=== PATIENT | female | born 1975 | race Caucasian/White ===

== ENCOUNTER 2018-01-25 12:12 | Emergency (ER) | payer OTHER ==
[~2018-01-25] VITALS: Ht 177.8 cm; Wt 86.2 kg
[~2018-01-25 12:12] MED LIST: ALLEGRA60 MG PO; CYCLOBENZAPRINE10 MG PO; IBUPROFEN400 MG PO; MOUTH SORE15 ML MM; NORCO 5-325 TA1 EACH PO; OXYCODONE HCL5 MG PO; PERCOCET 5-3251 EACH PO
[2018-01-25] MEDS ORDERED: IBUPROFEN600 MG PO (14:21)
[2018-01-25] MEDS ORDERED: NORCO 5-325 TA1 EACH PO (14:21)
[2018-01-25] MEDS ORDERED: CYCLOBENZAPRINE5 MG PO (14:21)
== END 2018-01-25 15:05 | disposition home or self-care (01) ==
LOC: ED 12:12
DX: S06.0X9A Concussion with loss of consciousness of unspecified duration, initial encounter (principal); S46.912A Strain of unspecified muscle, fascia and tendon at shoulder and upper arm level, left arm, initial encounter; S16.1XXA Strain of muscle, fascia and tendon at neck level, initial encounter; S70.02XA Contusion of left hip, initial encounter; W55.12XA Struck by horse, initial encounter; F17.200 Nicotine dependence, unspecified, uncomplicated; Z91.030 Bee allergy status; Z88.8 Allergy status to other drugs, medicaments and biological substances
CPT/HCPCS: 36415; 70450; 71045; 72125; 73030; 73502; 80053; 82150; 82550; 83690; 84703; 85025; 86850; 86900; 86901; 96374; 96375; 99284; G0480; J1100; J1170; J1885

== ENCOUNTER 2018-08-23 22:14 | Emergency (ER) | payer OTHER ==
[~2018-08-23] VITALS: Ht 177.8 cm; Wt 86.2 kg
[~2018-08-23 22:14] MED LIST changes: +CYCLOBENZAPRINE5 MG PO; +IBUPROFEN600 MG PO
[2018-08-23] MEDS ORDERED: NORCO 5-325 TA1 EACH PO (23:22)
== END 2018-08-23 23:32 | disposition home or self-care (01) ==
LOC: ED 22:14
PROC: 2W3CX1Z Immobilization of Right Lower Arm using Splint (ICD-10-PCS; principal; 2018-08-23)
DX: S63.501A Unspecified sprain of right wrist, initial encounter (principal); S63.91XA Sprain of unspecified part of right wrist and hand, initial encounter; S43.401A Unspecified sprain of right shoulder joint, initial encounter; F17.200 Nicotine dependence, unspecified, uncomplicated; Z90.49 Acquired absence of other specified parts of digestive tract; Z91.038 Other insect allergy status; Z88.5 Allergy status to narcotic agent; Z88.8 Allergy status to other drugs, medicaments and biological substances; Z91.09 Other allergy status, other than to drugs and biological substances; W10.9XXA Fall (on) (from) unspecified stairs and steps, initial encounter
CPT/HCPCS: 29125; 73030; 73110; 73130; 99283-25

== ENCOUNTER 2020-10-07 11:52 | Emergency (ER) | payer SELFPAY ==
[~2020-10-07] VITALS: Ht 177.8 cm; Wt 68.0 kg
[2020-10-07] MEDS ORDERED: ERYTHROMYCIN1 GM OP (15:02)
== END 2020-10-07 15:26 | disposition home or self-care (01) ==
LOC: ED 11:52
DX: H18.822 Corneal disorder due to contact lens, left eye (principal); F17.200 Nicotine dependence, unspecified, uncomplicated; Z91.030 Bee allergy status; Z88.8 Allergy status to other drugs, medicaments and biological substances; Z88.5 Allergy status to narcotic agent; W22.8XXA Striking against or struck by other objects, initial encounter
CPT/HCPCS: 99283